=== PATIENT | male | born 1980 | race American Indian/Alaskan Native ===

== ENCOUNTER 2018-10-02 18:51 | Emergency (ER) | payer MEDICAID ==
[2018-10-02 19:23] VITALS: RESP 18
[2018-10-02 20:16] LABS: ARTERIAL BLOOD GAS HCO3 26.6 mmol/L (21-28); ARTERIAL BLOOD GAS HEMOGLOBIN 12.7 g/dL (11.7-17.4); ARTERIAL BLOOD GAS O2 CAPACITY 16.8 mL/dl (16-24); ARTERIAL BLOOD GAS O2 CONTENT 16.6 ML/dl (15-23); ARTERIAL BLOOD GAS PCO2 43 mm/Hg (35-45); ARTERIAL BLOOD GAS TCO2 27.9 mmol.L (22-28)
[2018-10-02 20:18] LABS: HEMOGLOBIN 13.2 g/dL (14.0-18.0); MEAN CELL VOLUME 84.3 fl (80.0-105.0); MEAN CORPUSCULAR HEMOGLOBIN 28.1 pg (25.0-35.0); MEAN CORPUSCULAR HGB CONC 33.3 g/dl (31.0-37.0); MEAN PLATELET VOLUME 8.5 fl (7.0-11.0); RBC 4.7 10^6/uL (3.5-6.1); RED CELL DISTRIBUTION WIDTH 13.7 % (11.5-14.5); WHITE BLOOD COUNT 5.4 10^3/uL (4.5-11.0)
--- NOTE | 2018-10-02 20:28 | ED PDOC ---
Arrival/HPI - General Chief Complaint: Dizziness/Lightheaded Time Seen by Provider: 10/02/18 19:16 Historian: Patient - History of Present Illness Narrative History of Present Illness (Text): 10/02/18 19:55 German Hi is a 37 year old male, whose past medical history includes asthma and hypertension, who presents to the ED complaining of slight dizziness and generalized malaise. Patient states he had similar symptoms when exposed to carbon monoxide at mother's apartment. Patient states was seen last week at neighboring hospital and treated for carbon monoxide exposure. Patient states his levels were not grossly elevated. Carbon monoxide levels were checked at his mother's apartment by the fire department and determined to be safe. However, patient is concerned of possible re-exposure. Patient denies any headache, naus ea, vomiting, diarrhea, chest pain, shortness of breath, or any other complaints. Symptom Onset: Gradual Symptom Course: Unchanged Activities at Onset: Light Context: Home Past Medical History - Provider Review Nursing Documentation Reviewed: Yes - Cardiac Hx Cardiac Disorders: No - Pulmonary Other/Comment: Carbon Monoxide Poisoning - Neurological Hx Neurological Disorder: No - HEENT Hx HEENT Disorder: No - Renal Hx Renal Disorder: No - Endocrine/Metabolic Hx Endocrine Disorders: No - Hematological/Oncological Hx Blood Disorders: Yes Hx Sickle Cell Trait: Yes - Integumentary Hx Dermatological Disorder: No - Musculoskeletal/Rheumatological Hx Musculoskeletal Disorders: Yes Hx Arthritis: Yes - Gastrointestinal Hx Gastrointestinal Disorders: No - Psychiatric Hx Substance Use: Yes - Surgical History Other/Comment: Jaw Repair - 2002 Family/Social History - Physician Review Nursing Documentation Reviewed: Yes Family/Social History: Unknown Family HX Smoking Status: Light Smoker < 10 Cigarettes Daily Hx Alcohol Use: Yes Frequency of alcohol use: Socially Hx Substance Use: Yes Substance used: Marijuana, PCP Allergies/Home Meds Allergies/Adverse Reactions: Allergies No Known Allergies Allergy (Verified 10/02/18 19:15) Review of Systems - Physician Review All systems were reviewed & negative as marked: Yes - Review of Systems Constitutional: Other (+generalized malaise) Eyes: Normal ENT: Normal Respiratory: Normal. absent: SOB, Cough Cardiovascular: Normal. absent: Chest Pain Gastrointestinal: Normal. absent: Abdominal Pain, Diarrhea, Nausea, Vomiting Genitourinary Male: Normal. absent: Dysuria, Frequency, Hematuria, Urinary Output Changes Musculoskeletal: Normal. absent: Back Pain, Neck Pain Skin: Normal. absent: Rash Neurological: Dizziness Endocrine: Normal Hemo/Lymphatic: Normal Psychiatric: Normal Physical Exam Vital Signs Reviewed: Yes Vital Signs Temp Pulse Resp BP Pulse Ox 10/02/18 19:17 98.9 F 98 H 18 150/85 98 Temperature: Afebrile Blood Pressure: Normal Pulse: Regular Respiratory Rate: Normal Appearance: Positive for: Well-Appearing, Non-Toxic, Comfortable Pain Distress: None Mental Status: Positive for: Alert and Oriented X 3 - Systems Exam Head: Present: Atraumatic, Normocephalic Pupils: Present: PERRL Extroacular Muscles: Present: EOMI Conjunctiva: Present: Normal Ears: Present: Normal, NORMAL TM, Normal Canal. No: Erythema, TM Bulging, Fluid, TM Perf Mouth: Present: Moist Mucous Membranes Pharnyx: Present: Normal. No: ERYTHEMA, EXUDATE, TONSILS ENLARGED, Peritonsilar Swelling, Uvular Deviation, Muffled/Hoarse Voice, Strider, Soft Palate/Uvular Edema Nose (External): Present: Atraumatic Nose (Internal): Present: Normal Inspection Neck: Present: Normal Range of Motion. No: Meningeal Signs, MIDLINE TENDERNESS, Paraspinal Tenderness Respiratory/Chest: Present: Clear to Auscultation, Good Air Exchange. No: Respiratory Distress, Accessory Muscle Use Cardiovascular: Present: Regular Rate and Rhythm, Normal S1, S2. No: Murmurs Abdomen: No: Tenderness, Distention, Peritoneal Signs Back: Present: Normal Inspection. No: CVA Tenderness, Midline Tenderness, Paraspinal Tenderness Upper Extremity: Present: Normal Inspection. No: Cyanosis, Edema Lower Extremity: Present: Normal Inspection. No: Edema Neurological: Present: GCS=15, CN II-XII Intact, Speech Normal, Motor Func Grossly Intact, Normal Sensory Function, Normal Cerebellar Funct Skin: Present: Warm, Dry, Normal Color. No: Rashes Psychiatric: Present: Alert, Oriented x 3, Normal Insight, Normal Concentration Medical Decision Making ED Course and Treatment: 10/02/18 20:26 Impression: 37 year old male complaining of dizziness, generalized malaise. Plan: -- Labs -- ABG -- Reassess and disposition Progress Notes: - Lab Interpretations Lab Results: 10/02/18 20:15 Lab Results 10/02/18 20:15: WBC 5.4, RBC 4.70, Hgb 13.2 L, Hct 39.6 L, MCV 84.3, MCH 28.1, MCHC 33.3, RDW 13.7, Plt Count 229, MPV 8.5 10/02/18 20:13: pCO2 43, pO2 92.0, HCO3 26.6, ABG pH 7.40, ABG Total CO2 27.9, ABG O2 Saturation 99.0 H, ABG O2 Content 16.6, ABG Base Excess 1.5, ABG Hemoglobin 12.7, ABG Carboxyhemoglobin 5.6 H, POC ABG HHb (Measured) 0.9, ABG Methemoglobin 1.0, ABG O2 Capacity 16.8, Hgb O2 Saturation 92.4 L, FiO2 21.0 - Scribe Statement The provider has reviewed the documentation as recorded by the Scribe Li Hanna All medical record entries made by the Scribe were at my direction and personally dictated by me. I have reviewed the chart and agree that the record accurately reflects my personal performance of the history, physical exam, medical decision making, and the department course for this patient. I have also personally directed, reviewed, and agree with the discharge instructions and disposition. Disposition/Present on Arrival - Present on Arrival Any Indicators Present on Arrival: No History of DVT/PE: No History of Uncontrolled Diabetes: No Urinary Catheter: No History of Decub. Ulcer: No History Surgical Site Infection Following: None - Disposition Have Diagnosis and Disposition been Completed?: Yes Diagnosis: Carbon monoxide exposure Disposition: HOME/ ROUTINE Disposition Time: 00:35 Patient Plan: Discharge Condition: GOOD Additional Instructions: Avoid recurrent exposure to carbon monoxide /need to check for and notify fire d epartment of potential presence of carbon monoxide wherever you reside/follow up with your doctor this week Forms: [employer] ([place])
[2018-10-02 20:29] LABS: ALB/GLOB RATIO 1.4 (1.1-1.8); ALBUMIN 4.5 g/dL (3.0-4.8); ALT/SGPT 34 U/L (7-56); AST/SGOT 38 U/L (17-59); BLOOD UREA NITROGEN 6 mg/dL (7-21); CALCIUM 9.3 mg/dL (8.4-10.5); GFR NON-AFRICAN AMERICAN > 60
[2018-10-02 23:06] LABS: ARTERIAL BLOOD GAS HCO3 27.8 mmol/L (21-28); ARTERIAL BLOOD GAS O2 CAPACITY 18.7 mL/dl (16-24); ARTERIAL BLOOD GAS O2 CONTENT 18.7 ML/dl (15-23); ARTERIAL BLOOD GAS O2 SAT 100.1 % (95-98); ARTERIAL BLOOD GAS PCO2 41 mm/Hg (35-45); ARTERIAL BLOOD GAS PH 7.44 (7.35-7.45); ARTERIAL BLOOD GAS TCO2 29.1 mmol.L (22-28)
[2018-10-03 00:04] VITALS: BP 117/79; PULSE 79; TEMP 97.8; O2SAT 100
== END 2018-10-03 01:00 | disposition home or self-care (01) ==
LOC: ED 18:51
DX: T58.91XA Toxic effect of carbon monoxide from unspecified source, accidental (unintentional), initial encounter (principal); Y92.89 Other specified places as the place of occurrence of the external cause

== ENCOUNTER 2018-10-04 21:35 | Emergency (ER) | payer MEDICAID ==
[2018-10-04 21:35] VITALS: BMI 20.1
[2018-10-04 22:31] VITALS: BP 131/82; PULSE 96; RESP 18; TEMP 99.5; O2SAT 99
--- NOTE | 2018-10-05 00:10 | ED PDOC ---
Arrival/HPI - General Chief Complaint: GI Problem Time Seen by Provider: 10/04/18 23:05 - History of Present Illness Narrative History of Present Illness (Text): 10/05/18 00:07 37 year old male, whose past medical history includes asthma and hypertension, eloped without being seen. Past Medical History - Provider Review Nursing Documentation Reviewed: Yes - Infectious Disease Hx of Infectious Diseases: None - Cardiac Hx Cardiac Disorders: No - Pulmonary Other/Comment: Carbon Monoxide Poisoning - Neurological Hx Neurological Disorder: No - HEENT Hx HEENT Disorder: No - Renal Hx Renal Disorder: No - Endocrine/Metabolic Hx Endocrine Disorders: No - Hematological/Oncological Hx Blood Disorders: Yes Hx Sickle Cell Trait: Yes - Integumentary Hx Dermatological Disorder: No - Musculoskeletal/Rheumatological Hx Musculoskeletal Disorders: Yes Hx Arthritis: Yes - Gastrointestinal Hx Gastrointestinal Disorders: No - Psychiatric Hx Substance Use: Yes - Surgical History Other/Comment: Jaw Repair - 2002 - Anesthesia Hx Anesthesia: Yes Hx Anesthesia Reactions: No Family/Social History - Physician Review Nursing Documentation Reviewed: Yes Family/Social History: Other (pt not interviewed, LWOBS) Smoking Status: Light Smoker < 10 Cigarettes Daily Hx Alcohol Use: Yes Hx Substance Use: Yes Substance used: Marijuana, PCP Allergies/Home Meds Allergies/Adverse Reactions: Allergies No Known Allergies Allergy (Verified 10/03/18 08:16) Home Medications: Home Meds Medication Instructions Recorded Confirmed RX: No Known Home Med 10/01/18 10/01/18 Physical Exam Vital Signs Temp Pulse Resp BP Pulse Ox 10/04/18 22:30 99.5 F 96 H 18 131/82 99 Medical Decision Making ED Course and Treatment: 10/05/18 00:09 Progress Notes: Patient eloped without being see. Disposition/Present on Arrival - Present on Arrival Any Indicators Present on Arrival: No History of DVT/PE: No History of Uncontrolled Diabetes: No Urinary Catheter: No History of Decub. Ulcer: No History Surgical Site Infection Following: None - Disposition Have Diagnosis and Disposition been Completed?: Yes Diagnosis: Patient left without being seen Disposition: LEFT W/O BEING SEEN - ER ONLY Disposition Time: 00:10 Condition: UNKNOWN Referrals: Cyndee Laws MD [Primary Care Provider] - Follow up with primary Forms: [employer] ([place])
== END 2018-10-04 23:43 | disposition left against medical advice (07) ==
LOC: ED 21:35
DX: Z02.89 Encounter for other administrative examinations (principal); R11.2 Nausea with vomiting, unspecified